=== PATIENT | male | born 1985 | race Caucasian/White ===

== ENCOUNTER 2019-10-08 11:54 | Emergency (ER) | payer SELFPAY ==
[2019-10-08 12:17] VITALS: BP 126/74; PULSE 85; TEMP 98.8; BMI 35.5
[2019-10-08] MEDS ORDERED: valACYclovir HCL 1000 MG TABLET PO ONE (13:30)
[2019-10-08] MEDS ORDERED: DEXAMETHASONE 4 MG TABLET (FP) PO ONE (13:32)
[2019-10-08] MEDS ORDERED: DEXAMETHASONE SOD PHOSPHATE 10 MG/1 ML VIAL ONE (13:41)
[2019-10-08] MEDS ORDERED: valACYclovir HCL 500 MG TABLET (FP) ONE (13:41)
[2019-10-08] MEDS ORDERED: DEXAMETHASONE LIQUID 0.5 MG/5 ML PO ONE (13:46)
--- NOTE | 2019-10-08 13:59 | PDOC ---
History of Present Illness - General Chief Complaint: Facial Droop Stated Complaint: RT. SIDE FACE PAIN Time Seen by Provider: 10/08/19 12:43 History Source: Patient Exam Limitations: Clinical Condition - History of Present Illness Initial Comments: 10/08/19 14:05 Patient with no significant past medical history present with complaint of sudden onset of facial droop morning. Patient also reported right-sided ear pain since this morning. Patient report complete numbness to right side of face and eyebrow. Denies eye pain, blurry vision or change in vision. Denies headache, nausea, vomiting or dizziness. Denies any other symptoms. Denies weakness or numbness to arms or legs. Patient did not take anything for symptoms Is this a multiple visit Asthma Patient?: No Timing/Duration: 4-6 hours Past History - Past Medical History Allergies/Adverse Reactions: Allergies Allergy/AdvReac Type Severity Reaction Status Date / Time No Known Allergies Allergy Verified 10/08/19 12:13 Home Medications: Ambulatory Orders Valacyclovir HCl [Valtrex -] 1,000 mg PO TID 7 Days #21 tablet 10/08/19 predniSONE [Deltasone -] 40 mg PO BID 7 Days #28 tablet 10/08/19 COPD: No - Immunization History Immunization Up to Date: Yes - Psycho Social/Smoking Cessation Hx Smoking History: Never smoked Have you smoked in the past 12 months: No Information on smoking cessation initiated: No Hx Alcohol Use: Yes Drug/Substance Use Hx: No Substance Use Type: None Review of Systems - Review of Systems Able to Perform ROS?: Yes Is the patient limited Taiwanese proficient: No Constitutional: No: Chills, Fever, Malaise HEENTM: Yes: Symptoms Reported, See HPI, Ear Pain (right ear pain), Other ( right side facial droop). No: Eye Pain, Blurred Vision, Tearing, Recent change in vision, Double Vision, Cataracts, Ocular Prothesis, Ear Discharge, Nose Pain , Nose Congestion, Tinnitus, Nose Bleeding, Hearing Loss, Throat Pain, Throat Swelling, Mouth Pain, Dental Problems, Difficulty Swallowing, Mouth Swelling Respiratory: No: Symptoms reported, See HPI, Cough, Orthopnea, Shortness of Breath, SOB with Exertion, SOB at Rest, Stridor, Wheezing, Productive cough, Hemoptysis, Other Cardiac (ROS): No: Symptoms Reported, See HPI, Chest Pain, Edema, Irregular Heart Rate, Lightheadedness, Palpitations, Syncope, Chest Tightness, Other ABD/GI: No: Symptoms Reported, Constipated, Nausea, Vomiting, Abdominal cramping Musculoskeletal: No: Symptoms Reported Integumentary: No: Symptoms Reported Neurological: Yes: Symptoms reported, See HPI, Numbness (right side of face), Weakness (right side of face). No: Headache, Pre-Existing Deficit, Unsteady Gait, Ataxia, Dizziness All Other Systems: Reviewed and Negative *Physical Exam - Vital Signs Last Vital Signs Temp Pulse Resp BP Pulse Ox 98.8 F 85 18 126/74 97 10/08/19 12:13 10/08/19 12:13 10/08/19 12:13 10/08/19 12:13 10/08/19 12:13 - Physical Exam 10/08/19 13:51 GENERAL: Well developed, well nourished. Awake and alert. No acute distress. HEENT: right facial droop. Normocephalic, atraumatic. PERRLA, EOMI. No conjunctival pallor. Sclera are non-icteric. Moist mucous membranes. Oropharynx is clear. NECK: Supple. Full ROM. No JVD. Carotid pulses 2+ and symmetric, without bruits. No thyromegaly. No lymphadenopathy. CARDIOVASCULAR: Regular rate and rhythm. No murmurs, rubs, or gallops. Distal pulses are 2+ and symmetric. PULMONARY: No evidence of respiratory distress. Lungs clear to auscultation bilaterally. No wheezing, rales or rhonchi. ABDOMINAL: Soft. Non-tender. Non-distended. No rebound or guarding. No organomegaly. Normoactive bowel sounds. MUSCULOSKELETAL Normal range of motion at all joints. No bony deformities or tenderness. No CVA tenderness. SKIN: Warm and dry. Normal capillary refill. No rashes. No jaundice. NEUROLOGICAL: Alert, awake, appropriate. Right-sided facial drooping to right side of face and eyebrow. Visible drooping with smile and frowning to right side of face and eyebrow. no weakness to b/l upper and lower extremities. Normal speech. Toes are down-going bilaterally. Gait is normal without ataxia. PSYCHIATRIC: Cooperative. Good eye contact. Appropriate mood and affect. General Appearance: Yes: Nourished, Appropriately Dressed. No: Apparent Distress ED Treatment Course - LABORATORY CBC & Chemistry Diagram: 10/08/19 13:44 Medical Decision Making - Medical Decision Making 10/08/19 14:06 Patient with no significant past medical history present with complaint of sudden onset of facial droop morning. Patient also reported right-sided ear pain since this morning. Patient report complete numbness to right side of face and eyebrow. Denies eye pain, blurry vision or change in vision. Denies headache, nausea, vomiting or dizziness. Denies any other symptoms. Denies weakness or numbness to arms or legs. Patient did not take anything for symptoms Exam significant for right-sided facial droop to right cheek and right eyebrow which is visible with frowning. Extraocular muscle intact. Pupils equal and reflective to light bilateral. Normal neuro exam to bilateral upper and lower extremity with no acute neuro deficit except facial droop. Patient symptoms likely Greene's palsy which is likely caused by Barbara-Poole virus or Lyme disease. Barbara-Poole virus and Lyme disease lab ordered. Decadron 10 mg p.o. and Valtrex thousand milligrams p.o. ordered for Greene's palsy. Patient be discharged home on prednisone 80 mg a day and Valtrex thousand milligrams 3 times daily for 1 week for Greene's palsy with neurology follow-up Discharge - Discharge Information Problems reviewed: Yes Clinical Impression/Diagnosis: Right-sided Greene's palsy Condition: Stable Disposition: HOME - Admission No - Additional Discharge Information Prescriptions: predniSONE [Deltasone -] 40 mg PO BID 7 Days #28 tablet Valacyclovir HCl [Valtrex -] 1,000 mg PO TID 7 Days #21 tablet - Follow up/Referral Referrals: Cory Hanna MD [Staff Physician] - - Patient Discharge Instructions Patient Printed Discharge Instructions: DI for Greene's Palsy, Greene's Palsy Additional Instructions: Your symptoms likely Greene's palsy which is either caused by a virus or Lyme disease. Lab work sent for Barbara-Poole virus and Lyme disease which you will be called with results. Take prescribed medication as prescribed for Greene's palsy. Follow-up with referred neurologist Print Language: CROATIAN - Post Discharge Activity
[2019-10-08 14:02] LABS: BASO % 0.5 % (0-2.0); EOS % 1.4 % (0-4.5); HEMATOCRIT 45.2 % (35.4-49); HEMOGLOBIN 15.3 GM/dL (11.7-16.9); LYMPH % 18.5 % (8-40); MCH 29.3 pg (25.7-33.7); MCHC 33.8 g/dl (32.0-35.9); MEAN CELL VOLUME 86.8 fl (80-96); MEAN PLT VOLUME 8.3 fl (7.5-11.1); MONO % 5.8 % (3.8-10.2); NEUT % 73.8 % (42.8-82.8); PLATELET COUNT 264 K/MM3 (134-434); RBC 5.21 M/mm3 (4.00-5.60); RDW 12.6 % (11.9-15.9); WHITE BLOOD COUNT 8.7 K/mm3 (4.0-10.0)
== END 2019-10-08 14:45 | disposition home or self-care (01) ==
LOC: JER 11:54
DX: G51.0 Bell's palsy (principal)
CPT/HCPCS: 36415; 85025; 86618; 86664; 87799; 99282-25